=== PATIENT | female | born 1950 | race Caucasian/White ===

== ENCOUNTER 2021-09-04 08:31 | Outpatient (CLI) | payer MEDICARE ==
[2021-09-04] MEDS ORDERED: iohexol 350MG/ML 100ml bottle IV ONE (08:53)
== END 2021-09-04 23:59 | disposition home or self-care (01) ==
LOC: RAD 08:31
PROVIDERS: ATTEND Internal Medicine Interventional Cardiology
DX: I71.4 Abdominal aortic aneurysm, without rupture (principal); M47.819 Spondylosis without myelopathy or radiculopathy, site unspecified; I70.0 Atherosclerosis of aorta; K76.89 Other specified diseases of liver
CPT/HCPCS: 74174; Q9967

== ENCOUNTER 2021-10-27 08:37 | Outpatient (CLI) | payer MEDICARE ==
[~2021-10-27 08:37] MED LIST: iohexol 350MG/ML 100ml bottle IV ONE
[2021-10-27 09:29] LABS: ALBUMIN 4.2 G/DL (3.4-5.0); ANION GAP 9 (8-16); BLOOD UREA NITROGEN 20 MG/DL (7-18); CALCIUM 9.2 MG/DL (8.5-10.1); CHLORIDE 103 MMOL/L (99-107); CREATININE 0.87 MG/DL (0.40-0.90); GLUCOSE 151 MG/DL (70-104); SODIUM 140 MMOL/L (135-145); TOTAL CARBON DIOXIDE 27.8 MMOL/L (24-32); eGFR 64 ML/MIN
[2021-10-27 09:37] LABS: POTASSIUM 3.7 MMOL/L (3.5-5.1)
== END 2021-10-27 23:59 | disposition home or self-care (01) ==
LOC: RAD 08:37
PROVIDERS: ATTEND Internal Medicine Interventional Cardiology
DX: I71.2 Thoracic aortic aneurysm, without rupture (principal); I71.4 Abdominal aortic aneurysm, without rupture; I70.0 Atherosclerosis of aorta; J98.11 Atelectasis
CPT/HCPCS: 36415; 71275; 74174; 80048; Q9967

== ENCOUNTER 2022-05-06 14:47 | Day surgery (SDC) | payer MEDICARE ==
[2022-04-30 09:41] LABS: BASOPHILS % (AUTO) 0.6 % (0-1); EOSINOPHILS # (AUTO) 0.1 X10'3 (0-0.9); HEMATOCRIT 41.5 % (35.0-45.0); HEMOGLOBIN 13.7 g/dl (12.0-16.0); LYMPHOCYTES # (AUTO) 1.8 X10'3 (1.1-4.8); LYMPHOCYTES % (AUTO) 28.8 % (21-51); MEAN PLATELET VOLUME 9.4 FL (7.4-10.4); MONOCYTES # (AUTO) 0.5 X10'3 (0-0.9); MONOCYTES % (AUTO) 8.5 % (2-12); NEUTROPHILS # (AUTO) 3.7 X10'3 (1.8-7.7); NEUTROPHILS % (AUTO) 60.1 % (42-75); PLATELET COUNT 276 X10'3 (140-440); RED BLOOD COUNT 4.42 X10'6 (4.20-5.60); RED CELL DISTRIBUTION WIDTH 14.5 % (11.5-14.5); WHITE BLOOD COUNT 6.2 X10'3 (4.5-11.0)
[2022-04-30 09:49] LABS: APTT 24 SECONDS (22-32)
[2022-04-30 10:48] LABS: ALBUMIN 3.7 G/DL (3.4-5.0); ANION GAP 9 (8-16); BLOOD UREA NITROGEN 20 MG/DL (7-18); CALCIUM 8.5 MG/DL (8.5-10.1); CHLORIDE 104 MMOL/L (99-107); CHOL/HDL RATIO 3.2 (0.00-4.99); CHOLESTEROL 264 MG/DL (0-200); CREATININE 0.74 MG/DL (0.40-0.90); GLUCOSE 99 MG/DL (70-104); HDL CHOLESTEROL 82 MG/DL (35-60); LDL CHOLESTEROL 157 MG/DL (50-100); POTASSIUM 4.2 MMOL/L (3.5-5.1); SODIUM 142 MMOL/L (135-145); TOTAL CARBON DIOXIDE 29.5 MMOL/L (24-32); TRIGLYCERIDES 82 MG/DL (20-135); eGFR 78 ML/MIN
[~2022-05-06] VITALS: Ht 177.8 cm; Wt 66.8 kg
[2022-05-06] VITALS (9 sets, daily range): BP systolic 137–159; BP diastolic 71–97
[2022-05-06] MEDS ORDERED: LORazepam 0.5 MG tablet PO PRN ×2 (15:05→15:50)
[2022-05-06] MEDS ORDERED: diphenhydrAMINE 25mg capsule PO PRN ×2 (15:05→15:50)
[2022-05-06] MEDS ORDERED: normal saline 1,000 ML IV SCH ×2 (15:05→15:50)
[2022-05-06] MEDS ORDERED: ASPI-1071 PO (15:20)
[2022-05-06] MEDS ORDERED: CHOL10006 PO (15:20)
[2022-05-06] MEDS ORDERED: LISI-644 PO (15:20)
[2022-05-06] MEDS ORDERED: MULT-1085 PO (15:20)
[2022-05-06] MEDS ORDERED: METO-539 PO (15:20)
[2022-05-06] MEDS ORDERED: ANAS1TAB10 PO (15:20)
[2022-05-06] MEDS ORDERED: methylPREDNISolone sod succ 125mg/2ml vial IV ONE (15:50)
[2022-05-06] MEDS ORDERED: nitroGLYCERIN-Tridil 50MG/D5W 250 ML IV ONE (16:09)
[2022-05-06] MEDS ORDERED: verapamil 2.5 mg/ml inj IV ONE (16:10)
[2022-05-06] MEDS ORDERED: heparin 1,000unit/ml 10ml vial 10 ML ONE (16:10)
[2022-05-06] MEDS ORDERED: LIDOcaine 1% (10mg/ml) 2ml vial ONE (16:10)
[2022-05-06] MEDS ORDERED: midazolam 1 mg/ML 2ml injection ONE (16:10)
[2022-05-06] MEDS ORDERED: FENTANYL CITRATE/PF 50 MCG/1 ML VIAL ONE (16:10)
[2022-05-06] MEDS ORDERED: iohexol 350MG/ML 100ml bottle IV ONE (16:11)
--- NOTE | 2022-05-06 16:18 | NUR ---
Patient has allergy to iodine. New order for 20 mg famotidine PO once.
[2022-05-06] MEDS ORDERED: famotidine 20mg tablet PO ONE (16:20)
--- NOTE | 2022-05-06 19:41 | NUR ---
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 [facility] with no PCI. Bedside report received from NICOLE Oates. Right radial stable with vasc band in place. No bleeding/hematoma noted. Vital signs stable/NSR on black leather trimmer. Will continue to monitor.
[2022-05-06] MEDS ORDERED: HYDROcodone/acetaminophen 10/325mg tab PO PRN (20:00)
[2022-05-06] MEDS ORDERED: HYDROcodone/acetaminophen 5mg/325mg tablet PO PRN (20:00)
== END 2022-05-06 22:06 | disposition home or self-care (01) ==
LOC: SSTAY O 14:47
PROVIDERS: ATTEND Student in an Organized Health Care Education/Training Program
DX: Z01.810 Encounter for preprocedural cardiovascular examination (principal); I71.21 Aneurysm of the ascending aorta, without rupture; I10 Essential (primary) hypertension; E78.5 Hyperlipidemia, unspecified; Z79.01 Long term (current) use of anticoagulants; F41.9 Anxiety disorder, unspecified; Z79.899 Other long term (current) drug therapy; Z98.890 Other specified postprocedural states
CPT/HCPCS: 36415; 80048; 80061; 85025; 85610; 85730; 93005; 93458; 93567; 99152; A6258; C1769; C1894; J1644; J2250; J3010; J3490; J7030; Q0163; Q9967; A6402

== ENCOUNTER 2022-07-13 13:39 | Outpatient (CLI) | payer MEDICARE ==
[~2022-07-13 13:39] MED LIST changes: +ALIVE VITAMIN PO; +AMIO200T61 PO; +ANAS1TAB10 PO; +ASPI-1071 PO; +CHOL10006 PO; +EPA DHA PO; +HYDR-3972 PO; +METO-539 PO; -iohexol 350MG/ML 100ml bottle IV ONE
[2022-07-14] MEDS ORDERED: APIX5TAB3 PO (09:37)
== END 2022-07-13 23:59 | disposition home or self-care (01) ==
LOC: RAD 13:39
PROVIDERS: ATTEND Thoracic Surgery (Cardiothoracic Vascular Surgery)
DX: J98.11 Atelectasis (principal); J90 Pleural effusion, not elsewhere classified; R07.9 Chest pain, unspecified
CPT/HCPCS: 71046

== ENCOUNTER 2023-09-03 09:34 | Outpatient (CLI) | payer MEDICARE, OTHER ==
[~2023-09-03 09:34] MED LIST changes: -AMIO200T61 PO; +APIX5TAB3 PO
[2023-09-03] MEDS ORDERED: iohexol 350MG/ML 100ml bottle IV ONE (09:58)
== END 2023-09-03 23:59 | disposition home or self-care (01) ==
LOC: RAD 09:34
PROVIDERS: ATTEND Internal Medicine Interventional Cardiology
DX: K76.89 Other specified diseases of liver (principal); I71.20 Thoracic aortic aneurysm, without rupture, unspecified; E78.5 Hyperlipidemia, unspecified; Z95.2 Presence of prosthetic heart valve
CPT/HCPCS: 71275; J3490; Q9967